=== PATIENT | female | born 1970 | race Caucasian/White ===

== ENCOUNTER 2023-03-14 11:32 | Day surgery (SDC) | payer MEDICAID ==
[~2023-03-14] VITALS: Ht 165.1 cm; Wt 114.0 kg
[~2023-03-14 11:32] MED LIST: lidocaine 2% viscous 15 ML cup ***bronch room only MM ONE
[2023-03-14] MEDS ORDERED: PANT-47 PO (12:06)
[2023-03-14] MEDS ORDERED: CYCL-394 PO (12:07)
[2023-03-14] MEDS ORDERED: LOSA25TA41 PO (12:07)
[2023-03-14] MEDS ORDERED: PROG100C11 PO (12:08)
[2023-03-14] MEDS ORDERED: IBUP-1985 PO (12:09)
[2023-03-14] MEDS ORDERED: ACET-1130 (12:10)
[2023-03-14] MEDS ORDERED: PAPA1TAB10 (12:11)
[2023-03-14 12:40] VITALS: BP 123/97; PULSE 77; RESP 12
[2023-03-14] MEDS ORDERED: ALBU8HFA PO (12:49)
[2023-03-14] MEDS ORDERED: BUDE10.22 INH (12:49)
[2023-03-14] MEDS ORDERED: fentaNYL/PF 50MCG/1 ML 2ML syringe ONE (13:40)
[2023-03-14] MEDS ORDERED: MIDAZolam 1 MG/ML 5ML VIAL ONE (13:40)
[2023-03-14] MEDS ORDERED: diphenhydrAMINE 50 mg/ml inj ONE (13:55)
[2023-03-14 14:29] VITALS: BP 141/85; PULSE 71; RESP 14; O2SAT 98
[2023-03-14 14:39] VITALS: BP 145/78; PULSE 72; RESP 15; O2SAT 98
[2023-03-14 14:49] VITALS: BP 128/77; PULSE 67; RESP 12; O2SAT 100
[2023-03-14 14:59] VITALS: BP 130/77; PULSE 69; RESP 16; O2SAT 100
== END 2023-03-14 15:15 | disposition home or self-care (01) ==
LOC: GI LAB 11:32
PROVIDERS: ATTEND Internal Medicine Gastroenterology
DX: R10.84 Generalized abdominal pain (principal); D50.9 Iron deficiency anemia, unspecified; K57.30 Diverticulosis of large intestine without perforation or abscess without bleeding; K21.00 Gastro-esophageal reflux disease with esophagitis, without bleeding; K29.50 Unspecified chronic gastritis without bleeding; I45.10 Unspecified right bundle-branch block; J44.9 Chronic obstructive pulmonary disease, unspecified; G47.30 Sleep apnea, unspecified; I10 Essential (primary) hypertension; G62.9 Polyneuropathy, unspecified; Z99.81 Dependence on supplemental oxygen; Z87.891 Personal history of nicotine dependence; Z79.899 Other long term (current) drug therapy
CPT/HCPCS: 43239; 45378; 99152; 99153; J1200; J2250; J3010; J7030; Z7512; A4620

== ENCOUNTER 2024-10-22 05:32 | Day surgery (SDC) | payer MEDICAID ==
[2024-10-15 12:25] LABS: BASOPHILS % (AUTO) 0.7 % (0-1); EOSINOPHILS # (AUTO) 0.3 X10'3 (0-0.9); EOSINOPHILS % (AUTO) 4.8 % (0-6); LYMPHOCYTES # (AUTO) 2.3 X10'3 (1.1-4.8); LYMPHOCYTES % (AUTO) 33.9 % (21-51); MEAN CORPUSCULAR HGB CONC 33.9 g/dL (33.0-36.5); MEAN CORPUSCULAR VOLUME 85.4 FL (78-98); MEAN PLATELET VOLUME 8.6 FL (7.4-10.4); MONOCYTES # (AUTO) 0.6 X10'3 (0-0.9); MONOCYTES % (AUTO) 9.3 % (2-12); NEUTROPHILS # (AUTO) 3.5 X10'3 (1.8-7.7); NEUTROPHILS % (AUTO) 51.3 % (42-75); PRE OP HEMATOCRIT 42.9 % (35.0-45.0); PRE OP HEMOGLOBIN 14.5 g/dL (12.0-16.0); PRE OP PLATELET COUNT 273 X10'3 (140-440); PRE OP WHITE BLOOD COUNT 6.7 10'3 (4.8-10.8); RED BLOOD COUNT 5.02 X10'6 (4.20-5.60); RED CELL DISTRIBUTION WIDTH 13.6 % (11.5-14.5)
[2024-10-15 12:46] LABS: ALBUMIN 3.8 G/DL (3.4-5.0); ALBUMIN/GLOBULIN RATIO 0.9 (1.1-1.5); ALKALINE PHOSPHATASE 93 IU/L (46-116); BLOOD UREA NITROGEN 13 MG/DL (7-18); BUN/CREATININE RATIO 15.9 (10.0-20.0); CALCIUM 8.8 MG/DL (8.5-10.1); CHLORIDE 105 MMOL/L (99-107); CREATININE 0.82 MG/DL (0.40-0.90); PRE OP ALT 32 U/L (30-65); PRE OP ANION GAP 7 (8-16); PRE OP AST 17 U/L (10-37); PRE OP BILIRUB, TOTAL 0.5 MG/DL (0.0-1.0); PRE OP GLUCOSE 84 MG/DL (70-104); PRE OP POTASSIUM 4.1 MMOL/L (3.4-5.1); PRE OP SODIUM 142 MMOL/L (135-145); TOTAL PROTEIN 7.9 G/DL (6.4-8.2); eGFR 73 ML/MIN
[2024-10-15 13:10] LABS: HCG SERUM QL NEGATIVE
[~2024-10-22] VITALS: Ht 162.6 cm; Wt 107.2 kg
[2024-10-22] VITALS (13 sets, daily range): BP systolic 122–153; BP diastolic 78–99; PULSE 54–67; RESP 10–16; TEMP 98.3; O2SAT 67–100
[~2024-10-22 05:32] MED LIST changes: +ACET-1130 PO; +ALBU8HFA PO; +BUDE10.22 INH; +ESCI10TA PO; +LOSA25TA41 PO; +PANT-47 PO; +PAPA1TAB10 PO; +PREBIOTIC PO; +PRO PO; +albuterol 2.5 MG/3 ML nebule NEB PRN; +ceFAZolin 2gm in dextrose, iso 50 ML IV ONE; -lidocaine 2% viscous 15 ML cup ***bronch room only MM ONE
[2024-10-22] MEDS: famotidine 20mg tablet PO ONE (06:12)
[2024-10-22] MEDS: ringers solution, lacted 1,000 ML IV SCH (06:12)
[2024-10-22] MEDS: INDOCYANINE GREEN 25 MG/10 ML VIAL IV ONE (06:20)
[2024-10-22] MEDS ORDERED: LIDOcaine 1% (10mg/ml)w/preservative inj. 20ml MDV ONE (06:38)
[2024-10-22] MEDS ORDERED: BUPIVAcaine 2.5mg/ml inj 50ml vial (contains preservative) ONE (06:38)
[2024-10-22] MEDS ORDERED: sevoflurane 250ml liquid IH ONE (07:22)
[2024-10-22] MEDS ORDERED: midazolam 1 mg/ML 2ml injection ONE (07:31)
[2024-10-22] MEDS ORDERED: fentaNYL/PF 50MCG/1 ML 2ML syringe ONE (07:31)
[2024-10-22] MEDS ORDERED: rocuronium 10mg/ml inj IV ONE (07:42)
[2024-10-22] MEDS ORDERED: acetaminophen 1,000mg/100ml IV 100 ML IV ONE (07:42)
[2024-10-22] MEDS ORDERED: dexamethasone sod phosphate 4mg/ml inj. ONE (07:42)
[2024-10-22] MEDS ORDERED: ondansetron/PF 4mg/2ml inj ONE (07:42)
[2024-10-22] MEDS ORDERED: propofol inj 20 ML IV ONE (07:42)
[2024-10-22] MEDS ORDERED: LIDOcaine 2% (20mg/ml) 5ml vial ONE (07:42)
[2024-10-22] MEDS ORDERED: morphine 4 MG/ML inj SYRINge IV PRN (08:05)
[2024-10-22] MEDS ORDERED: enalaprilat 1.25mg/ml 2ml vial IV PRN (08:05)
[2024-10-22] MEDS ORDERED: labetalol 20mg/4ml (5mg/ml) syringe IV PRN (08:05)
[2024-10-22] MEDS ORDERED: ondansetron/PF 4mg/2ml inj IV PRN (08:05)
[2024-10-22] MEDS ORDERED: meperidine/PF 25mg/ml syringe IV PRN ×3 (08:05)
[2024-10-22] MEDS ORDERED: proCHLORperazine 10 MG/2 ml inj IV PRN (08:05)
[2024-10-22] MEDS ORDERED: ringers solution, lacted 1,000 ML IV SCH (08:05)
[2024-10-22] MEDS: BUPIVAcaine/PF 2.5 mg/ml (0.25%) 30ml vial IJ ONE (08:05)
[2024-10-22] MEDS ORDERED: morphine 2 MG/ML inj. syringe IV PRN (08:05)
[2024-10-22] MEDS ORDERED: morphine 4 MG/ML inj SYRINge ONE (08:06)
[2024-10-22] MEDS ORDERED: sugammadex 200mg/2ml injection IV ONE (08:23)
[2024-10-22] MEDS ORDERED: oxyCODONE/APAP 5-325mg tablet PO PRN (09:00)
[2024-10-22] MEDS: oxyCODONE/APAP 5-325mg tablet PO ONE (10:01)
== END 2024-10-22 10:49 | disposition home or self-care (01) ==
LOC: PAS 05:32
PROVIDERS: ATTEND Surgery
DX: K80.10 Calculus of gallbladder with chronic cholecystitis without obstruction (principal); G62.9 Polyneuropathy, unspecified; F41.9 Anxiety disorder, unspecified; F32.A Depression, unspecified; G47.30 Sleep apnea, unspecified; Z79.51 Long term (current) use of inhaled steroids; Z88.8 Allergy status to other drugs, medicaments and biological substances; Z79.899 Other long term (current) drug therapy; Z98.890 Other specified postprocedural states
CPT/HCPCS: 36415; 47563; 80053; 82948; 84703; 85025; 93005; J0131; J0690; J1100; J2003; J2250; J2270; J2405; J2704; J3010; J3490; J7030; J7120; S2900; Z7506; Z7508; Z7512; A4215; A4618; A7000